=== PATIENT | female | born 1975 | race Caucasian/White ===

== ENCOUNTER 2021-05-14 21:56 | Emergency (ER) | payer OTHER ==
[2021-05-14 23:33] LABS: HEMOGLOBIN 13.4 gm/dl (12.3-15.3); RED BLOOD COUNT 4.33 M/UL (4.00-5.10); WHITE BLOOD COUNT 7.6 K/UL (4.5-11.0)
[2021-05-14 23:57] LABS: BUN/CREATININE RATIO 17 (0-10)
[2021-05-15] MEDS ORDERED: CORTISPORIN OTI10 M1 EARRT (01:05)
== END 2021-05-15 01:29 | disposition home or self-care (01) ==
LOC: ER1 21:56
PROVIDERS: Physician Assistant
DX: H60.91 Unspecified otitis externa, right ear (principal); E11.9 Type 2 diabetes mellitus without complications; Z79.84 Long term (current) use of oral hypoglycemic drugs; E78.5 Hyperlipidemia, unspecified
CPT/HCPCS: 80048; 85025; 93005; 99283